=== PATIENT | male | born 1985 | race Two or more races ===

== ENCOUNTER 2024-08-07 13:30 | Inpatient (IN) | payer OTHER ==
[2024-08-07 17:36] LABS: VENOUS BASE EXCESS -6.9 mmol/L (-2-2); VENOUS O2 SATURATION 96.9 % (70-80); VENOUS PH 7.319 (7.310-7.410)
[2024-08-07 17:37] LABS: BASO % 0.3 % (0-2.0); EOS % 2.3 % (0-4.5); HEMATOCRIT 24.9 % (35.4-49); HEMOGLOBIN 8.1 GM/dL (11.7-16.9); MCH 27.5 pg (25.7-33.7); MCHC 32.5 g/dl (32.0-35.9); MEAN CELL VOLUME 84.5 fl (80-96); MEAN PLT VOLUME 7.9 fl (7.5-11.1); MONO % 7.7 % (3.8-10.2); NEUT % 80.7 % (42.8-82.8); PLATELET COUNT 186 10^3/uL (134-434); RBC 2.94 M/mm3 (4.00-5.60); RDW 16.3 % (11.9-15.9); WHITE BLOOD COUNT 6.9 K/mm3 (4.0-10.0)
[2024-08-07 17:48] LABS: INR 1.29 (0.83-1.09); PROTHROMBIN TIME (PATIENT) 14.1 SEC (9.7-13.0)
[2024-08-07 18:02] LABS: CHLORIDE 108 mmol/L (98-107); POTASSIUM 4.3 mmol/L (3.5-5.1); SODIUM 139 mmol/L (136-145)
[2024-08-07 18:04] LABS: BLOOD UREA NITROGEN 67.3 mg/dL (7-18)
[2024-08-07 18:05] LABS: ANION GAP 9 mmol/L (4-13); CO2 22 mmol/L (21-32); GLUCOSE,RANDOM 147 mg/dL (74-106); MAGNESIUM 1.1 mg/dL (1.8-2.4)
[2024-08-07 18:08] LABS: CREATININE 6.2 mg/dL (0.55-1.3); PHOSPHOROUS 5.7 mg/dL (2.5-4.9); SGOT/AST 24 U/L (15-37); SGPT/ALT 40 U/L (13-61)
[2024-08-07 18:09] LABS: BILIRUBIN,TOTAL 0.4 mg/dL (0.2-1)
[2024-08-07 18:10] LABS: TOT PROT 6.4 g/dl (6.4-8.2)
[2024-08-07 18:11] LABS: ALK PHOS 133 U/L (45-117)
[2024-08-07 18:13] LABS: N-TERMINAL BNP 1743.7 pg/ml (5-125)
[2024-08-07] MEDS: FUROSEMIDE 40 MG/4 ML INJECTABLE VIAL IVPUSH ONE ×2 (18:26→18:54)
[2024-08-07] MEDS ORDERED: FUROSEMIDE 40 MG/4 ML INJECTABLE VIAL ONE (18:28)
[2024-08-07] MEDS ORDERED: MAGNESIUM 1GM/D5W - 1 GM/100 ML IVPB IVPB ONE (18:28)
[2024-08-07] MEDS: MAGNESIUM 1GM/D5W - 1 GM/100 ML IVPB IVPB ONE (18:54)
[2024-08-07] MEDS ORDERED: CALCIUM CHLORIDE 1 GM/10 ML *DISP.SYRIN ONE (18:55)
[2024-08-07] MEDS ORDERED: ACETAMINOPHEN INJECTION 100 ML ONE (18:55)
[2024-08-07] MEDS: CALCIUM GLUCONATE 10% - 1,000 MG/10 ML VIAL IVPUSH ONE (19:02)
[2024-08-07] MEDS ORDERED: DOCUSATE SODIUM 100 MG CAPSULE (FP) PO PRN (20:37)
[2024-08-07] MEDS ORDERED: ACETAMINOPHEN 325 MG TABLET (FP) PO PRN (20:37)
[2024-08-07] MEDS: ACETAMINOPHEN 1000 MG/100 ML BAG IVPB ONE (21:58)
[2024-08-07] MEDS: INSULIN ASPART SLIDING SCALE (NOVOLOG) 1 VIAL SQ SCH (22:09)
[2024-08-08] MEDS ORDERED: MORPHINE SULFATE 2 MG/ML SYRINGE ONE (00:21)
[2024-08-08] MEDS: morphine CARPU-JECT 4 MG/1 ML DISP.SYRIN IVPUSH ONE (00:30)
[2024-08-08] MEDS: MORPHINE SULFATE 2 MG/ML SYRINGE IVPUSH ONE (00:40)
[2024-08-08 01:50] VITALS: BMI 43.1
[2024-08-08] MEDS ORDERED: FLUTICASONE PROP 0.05% 16 GM NASAL SPRAY NS PRN ×2 (03:27→11:37)
[2024-08-08] MEDS ORDERED: SODIUM CHLORIDE NASAL SPRAY 44 ML BOTTLE NS PRN ×2 (03:27→11:37)
[2024-08-08] MEDS ORDERED: LORATADINE 10 MG TABLET PO PRN ×2 (03:27→11:37)
[2024-08-08] MEDS ORDERED: ALBUTEROL SO4 HFA INHALER IH PRN ×2 (03:30→11:37)
[2024-08-08] MEDS: CARVEDILOL 6.25 MG TABLET (FP) PO ONE (03:49)
[2024-08-08] MEDS: morphine SULFATE 4 MG/ML VIAL IVPUSH ONE (03:49)
[2024-08-08] MEDS: ACETAMINOPHEN 500 MG TABLET (FP) PO ONE (04:41)
[2024-08-08] MEDS: SODIUM BICARBONATE 650 MG TABLET PO SCH ×2 (06:50→18:39)
[2024-08-08] MEDS: EMPAGLIFLOZIN (JARDIANCE) 10 MG TABLET PO SCH (06:50)
[2024-08-08 08:19] LABS: BASO % 0.4 % (0-2.0); EOS % 2.7 % (0-4.5); HEMATOCRIT 24.1 % (35.4-49); HEMOGLOBIN 7.7 GM/dL (11.7-16.9); LYMPH % 12.7 % (8-40); MCH 27.3 pg (25.7-33.7); MCHC 32.1 g/dl (32.0-35.9); MONO % 8.8 % (3.8-10.2); NEUT % 75.4 % (42.8-82.8); PLATELET COUNT 167 10^3/uL (134-434); RBC 2.83 M/mm3 (4.00-5.60); RDW 16.2 % (11.9-15.9); WHITE BLOOD COUNT 6.3 K/mm3 (4.0-10.0)
[2024-08-08 08:47] LABS: CHLORIDE 108 mmol/L (98-107); POTASSIUM 4.4 mmol/L (3.5-5.1); SODIUM 138 mmol/L (136-145)
[2024-08-08 09:25] LABS: BLOOD UREA NITROGEN 67.4 mg/dL (7-18)
[2024-08-08 09:26] LABS: ANION GAP 10 mmol/L (4-13); CALCIUM 6.2 mg/dL (8.5-10.1); CO2 21 mmol/L (21-32); GLUCOSE,RANDOM 129 mg/dL (74-106); MAGNESIUM 1.4 mg/dL (1.8-2.4)
[2024-08-08 09:29] LABS: CREATININE 6.6 mg/dL (0.55-1.3)
[2024-08-08 09:30] LABS: PHOSPHOROUS 6.3 mg/dL (2.5-4.9)
[2024-08-08] MEDS ORDERED: LIDOCAINE HCL 1%, 10 MG/ML (20ML VIAL) ONE (10:16)
[2024-08-08] MEDS ORDERED: HEPARIN NA (PORCINE) 5,000 UNITS/ML 1ML VIAL ONE (10:17)
[2024-08-08] MEDS: hydrALAZINE HCL 25 MG TABLET (FP) PO SCH ×2 (10:17→21:33)
[2024-08-08] MEDS: PANTOPRAZOLE 40 MG TABLET PO SCH (10:18)
[2024-08-08] MEDS: BUDESONIDE/FORMETEROL FUMARATE 160/4.5 mcg INHALER IH SCH ×2 (10:18→21:36)
[2024-08-08] MEDS: CARVEDILOL 6.25 MG TABLET (FP) PO SCH ×2 (10:18→21:33)
[2024-08-08] MEDS: amLODIPine BESYLATE 10 MG TABLET (FP) PO SCH (10:18)
[2024-08-08] MEDS: LIDOCAINE HCL 1%, 10 MG/ML (20ML VIAL) NR ONE (10:43)
[2024-08-08] MEDS: HEPARIN NA (PORCINE) 1,000 UNITS/ML 10ML M-D VIAL SQ ONE (10:44)
[2024-08-08] MEDS ORDERED: PROPOFOL 20 ML ONE (10:46)
[2024-08-08] MEDS ORDERED: MIDAZOLAM HCL 2 MG/2 ML SINGLE DOSE VIAL ONE (10:53)
[2024-08-08] MEDS ORDERED: ceFAZolin SODIUM 1 GM VIAL ONE (11:01)
[2024-08-08] MEDS ORDERED: SODIUM CHLORIDE 0.9% P/F 10 ML VIAL IJ ONE (11:01)
[2024-08-08] MEDS: ceFAZolin SODIUM 1 GM VIAL IVPB ONE (11:05)
[2024-08-08] MEDS ORDERED: ONDANSETRON 4 MG/2 ML VIAL IVPUSH PRN (11:29)
[2024-08-08] MEDS ORDERED: DOCUSATE SODIUM 100 MG CAPSULE (FP) PO PRN (11:37)
[2024-08-08] MEDS: LACTATED RINGERS SOLUTION 1,000 ML IV SCH (12:31)
[2024-08-08] MEDS ORDERED: SODIUM CHLORIDE 250 ML IV PRN ×2 (14:41→19:09)
[2024-08-08] MEDS: INSULIN ASPART SLIDING SCALE (NOVOLOG) 1 VIAL SQ SCH (18:38)
[2024-08-08] MEDS ORDERED: INSULIN ASPART SLIDING SCALE (NOVOLOG) 1 VIAL SQ ONE (19:01)
[2024-08-08] MEDS: CALCIUM ACETATE 667 MG CAPSULE (FP) PO SCH (21:32)
[2024-08-08] MEDS: MAGNESIUM OXIDE 400 MG TABLET (FP) PO ONE (21:32)
[2024-08-08] MEDS: CALCIUM GLUCONATE 10% - 1,000 MG/10 ML VIAL IVPB ONE (21:32)
[2024-08-08] MEDS: ATORVASTATIN CA 40 MG TABLET (FP) PO SCH (21:33)
[2024-08-08] MEDS ORDERED: ZOLPIDEM TARTRATE 5 MG TABLET PO PRN (22:00)
[2024-08-08] MEDS ORDERED: ATORVASTATIN CA 40 MG TABLET (FP) PO SCH (22:00)
[2024-08-08] MEDS: ZOLPIDEM TARTRATE 5 MG TABLET PO PRN (23:03)
[2024-08-09] MEDS: EMPAGLIFLOZIN (JARDIANCE) 10 MG TABLET PO SCH (06:33)
[2024-08-09] MEDS: ACETAMINOPHEN 325 MG TABLET (FP) PO PRN (06:37)
[2024-08-09 08:05] LABS: BASO % 0.3 % (0-2.0); HEMATOCRIT 24.7 % (35.4-49); LYMPH % 7.7 % (8-40); MCH 27.5 pg (25.7-33.7); MCHC 32.2 g/dl (32.0-35.9); MEAN CELL VOLUME 85.3 fl (80-96); MEAN PLT VOLUME 7.9 fl (7.5-11.1); MONO % 7.2 % (3.8-10.2); NEUT % 82.8 % (42.8-82.8); PLATELET COUNT 186 10^3/uL (134-434); RDW 16.1 % (11.9-15.9); WHITE BLOOD COUNT 7.7 K/mm3 (4.0-10.0)
[2024-08-09 08:22] LABS: CHLORIDE 106 mmol/L (98-107); POTASSIUM 4.6 mmol/L (3.5-5.1); SODIUM 139 mmol/L (136-145)
[2024-08-09 08:24] LABS: ALBUMIN 2.9 g/dl (3.4-5.0); ANION GAP 7 mmol/L (4-13); BLOOD UREA NITROGEN 55.8 mg/dL (7-18); CALCIUM 6.9 mg/dL (8.5-10.1); CO2 26 mmol/L (21-32); GLUCOSE,RANDOM 231 mg/dL (74-106)
[2024-08-09 08:27] LABS: CREATININE 5.8 mg/dL (0.55-1.3); SGOT/AST 17 U/L (15-37); SGPT/ALT 32 U/L (13-61)
[2024-08-09 08:29] LABS: BILIRUBIN,TOTAL 0.3 mg/dL (0.2-1); TOT PROT 6.2 g/dl (6.4-8.2)
[2024-08-09 08:30] LABS: ALK PHOS 133 U/L (45-117)
[2024-08-09] MEDS: PANTOPRAZOLE 40 MG TABLET PO SCH (11:26)
[2024-08-09] MEDS: amLODIPine BESYLATE 10 MG TABLET (FP) PO SCH (11:27)
[2024-08-09] MEDS: HEPARIN NA (PORCINE) 5,000 UNITS/ML 1ML VIAL IVPUSH ONE (12:30)
[2024-08-09 14:08] LABS: MAGNESIUM 1.4 mg/dL (1.8-2.4)
[2024-08-09 14:12] LABS: PHOSPHOROUS 5.6 mg/dL (2.5-4.9)
[2024-08-09 14:22] VITALS: TEMP 98.2
[2024-08-09] MEDS: EPOETIN ALFA-EPBX 10,000 UNIT/ML VIAL IVPUSH ONE (14:53)
[2024-08-09] MEDS: CALCIUM GLUCONATE 10% - 1,000 MG/10 ML VIAL IVPB ONE (16:56)
[2024-08-09] MEDS ORDERED: MAGNESIUM 2GM/50ML STERILE WATER IVPB IVPB ONE (17:00)
[2024-08-09] MEDS: MAGNESIUM 2GM/50ML STERILE WATER IVPB IVPB ONE (18:20)
[2024-08-09 19:37] VITALS: BP 151/77; PULSE 93; RESP 16
== END 2024-08-09 20:40 | disposition home or self-care (01) | DRG 194 ==
LOC: JER 13:30 → JERBED 20:31 → J7W 08-08 01:07
PROVIDERS: ADMIT Internal Medicine; ATTEND Internal Medicine
PROC: B548ZZA Ultrasonography of Superior Vena Cava, Guidance (ICD-10-PCS; 2024-08-08)
PROC: 5A1D70Z Performance of Urinary Filtration, Intermittent, Less than 6 Hours Per Day (ICD-10-PCS; 2024-08-08)
PROC: 02HV33Z Insertion of Infusion Device into Superior Vena Cava, Percutaneous Approach (ICD-10-PCS; principal; 2024-08-08 12:30)
DX: I13.2 Hypertensive heart and chronic kidney disease with heart failure and with stage 5 chronic kidney disease, or end stage renal disease (principal); N17.9 Acute kidney failure, unspecified; E83.42 Hypomagnesemia; E11.22 Type 2 diabetes mellitus with diabetic chronic kidney disease; N18.6 End stage renal disease; E11.51 Type 2 diabetes mellitus with diabetic peripheral angiopathy without gangrene; I25.2 Old myocardial infarction; I50.32 Chronic diastolic (congestive) heart failure; I25.10 Atherosclerotic heart disease of native coronary artery without angina pectoris; K21.9 Gastro-esophageal reflux disease without esophagitis; E78.5 Hyperlipidemia, unspecified
CPT/HCPCS: 0241U-QW; 36415; 71045-TC-FY; 76000-TC-FY; 80048; 80053; 82550; 82553; 82803; 82962; 83735; 83880; 84100; 84443; 84484; 85025; 85610; 85730; 86704; 86803; 86850; 86900; 86901; 87340; 87517; 93005; 93010; 93970-TC; 94760; 99285-25; C1750; J0131; J1644; Q5106

== ENCOUNTER 2024-08-13 14:32 | Observation (INO) | payer OTHER ==
[2024-08-13 14:40] VITALS: BMI 40.7
[2024-08-13] MEDS ORDERED: FUROSEMIDE 40 MG/4 ML INJECTABLE VIAL ONE (15:57)
[2024-08-13] MEDS: FUROSEMIDE 40 MG/4 ML INJECTABLE VIAL IVPUSH ONE (16:01)
[2024-08-13 16:15] LABS: BASO % 0.3 % (0-2.0); EOS % 1.4 % (0-4.5); HEMATOCRIT 25.9 % (35.4-49); HEMOGLOBIN 8.1 GM/dL (11.7-16.9); LYMPH % 6.4 % (8-40); MCH 26.6 pg (25.7-33.7); MCHC 31.4 g/dl (32.0-35.9); MEAN CELL VOLUME 84.7 fl (80-96); MEAN PLT VOLUME 7.9 fl (7.5-11.1); MONO % 9.9 % (3.8-10.2); PLATELET COUNT 210 10^3/uL (134-434); RBC 3.06 M/mm3 (4.00-5.60); RDW 16.4 % (11.9-15.9); WHITE BLOOD COUNT 7.9 K/mm3 (4.0-10.0)
[2024-08-13 16:30] LABS: INR 1.32 (0.83-1.09); PROTHROMBIN TIME (PATIENT) 14.4 SEC (9.7-13.0)
[2024-08-13 16:46] LABS: POTASSIUM 4.4 mmol/L (3.5-5.1)
[2024-08-13] MEDS ORDERED: ACETAMINOPHEN 325 MG TABLET (FP) ONE (16:46)
[2024-08-13 16:47] LABS: CALCIUM 7.7 mg/dL (8.5-10.1)
[2024-08-13 16:48] LABS: ALBUMIN 2.9 g/dl (3.4-5.0); BLOOD UREA NITROGEN 36.1 mg/dL (7-18); MAGNESIUM 1.7 mg/dL (1.8-2.4)
[2024-08-13] MEDS: ACETAMINOPHEN 325 MG TABLET (FP) PO ONE (16:50)
[2024-08-13 16:51] LABS: CREATININE 4.5 mg/dL (0.55-1.3)
[2024-08-13 16:52] LABS: BILIRUBIN,TOTAL 0.6 mg/dL (0.2-1); TOT PROT 6.5 g/dl (6.4-8.2)
[2024-08-13] MEDS ORDERED: SODIUM CHLORIDE 250 ML IV PRN (17:14)
[2024-08-13] MEDS: HEPARIN NA (PORCINE) 5,000 UNITS/ML 1ML VIAL IVPUSH ONE (17:15)
[2024-08-14] MEDS: hydrOXYzine PAMOATE 25 MG CAPSULE (FP) PO ONE (04:52)
[2024-08-14] MEDS ORDERED: ALBUTEROL SO4 HFA INHALER IH PRN (09:05)
[2024-08-14] MEDS ORDERED: INSULIN ASPART SLIDING SCALE (NOVOLOG) 1 VIAL SQ ONE (09:31)
[2024-08-14] MEDS: INSULIN ASPART SLIDING SCALE (NOVOLOG) 1 VIAL SQ SCH (09:38)
[2024-08-14 10:00] LABS: BASO % 0.2 % (0-2.0); EOS % 1.6 % (0-4.5); HEMATOCRIT 26.5 % (35.4-49); HEMOGLOBIN 8.4 GM/dL (11.7-16.9); LYMPH % 10.4 % (8-40); MCH 26.9 pg (25.7-33.7); MCHC 31.9 g/dl (32.0-35.9); MEAN CELL VOLUME 84.3 fl (80-96); MONO % 9.7 % (3.8-10.2); NEUT % 78.1 % (42.8-82.8); PLATELET COUNT 231 10^3/uL (134-434); RBC 3.14 M/mm3 (4.00-5.60); RDW 16.4 % (11.9-15.9); WHITE BLOOD COUNT 7.4 K/mm3 (4.0-10.0)
[2024-08-14] MEDS: hydrALAZINE HCL 25 MG TABLET (FP) PO SCH (10:03)
[2024-08-14] MEDS: CARVEDILOL 6.25 MG TABLET (FP) PO SCH (10:04)
[2024-08-14 10:05] LABS: CALCIUM 7.5 mg/dL (8.5-10.1)
[2024-08-14 10:06] LABS: BLOOD UREA NITROGEN 29.7 mg/dL (7-18); MAGNESIUM 1.6 mg/dL (1.8-2.4)
[2024-08-14 10:09] LABS: PHOSPHOROUS 4.1 mg/dL (2.5-4.9)
[2024-08-14 10:10] LABS: BILIRUBIN,TOTAL 0.6 mg/dL (0.2-1); TOT PROT 6.6 g/dl (6.4-8.2)
[2024-08-14] MEDS ORDERED: KETOROLAC TROMETHAMINE 15 MG/ML VIAL IVPUSH PRN (11:02)
[2024-08-14] MEDS: traMADol HCL 50 MG TABLET PO PRN (12:06)
[2024-08-14] MEDS: EMPAGLIFLOZIN (JARDIANCE) 10 MG TABLET PO SCH (12:13)
[2024-08-14] MEDS: BUDESONIDE/FORMETEROL FUMARATE 160/4.5 mcg INHALER IH SCH (12:13)
[2024-08-14] MEDS: SODIUM BICARBONATE 650 MG TABLET PO SCH (12:23)
[2024-08-14] MEDS: FUROSEMIDE 40 MG TABLET (FP) PO SCH (12:23)
[2024-08-14] MEDS: amLODIPine BESYLATE 10 MG TABLET (FP) PO SCH (14:04)
[2024-08-14] MEDS: CALCIUM 500MG/VIT-D 200 UNITS COMBO TABLET (FP) PO SCH (14:10)
[2024-08-14] MEDS: HEPARIN NA (PORCINE) 5,000 UNITS/ML 1ML VIAL SQ SCH (14:12)
[2024-08-14] MEDS: MAGNESIUM 2GM/50ML STERILE WATER IVPB IVPB ONE (15:05)
[2024-08-14] MEDS: ALPRAZolam 1 MG TABLET PO ONE (16:16)
[2024-08-14] MEDS: HEPARIN NA (PORCINE) 5,000 UNITS/ML 1ML VIAL IVPUSH ONE (16:35)
[2024-08-14] MEDS: EPOETIN ALFA-EPBX 10,000 UNIT/ML VIAL SQ ONE (18:46)
[2024-08-14] MEDS: INSULIN (LEVEMIR) 100 UNITS/ML UNITS SQ SCH (21:02)
[2024-08-14] MEDS: ATORVASTATIN CA 40 MG TABLET (FP) PO SCH (21:07)
[2024-08-14 21:15] LABS: OPIATES, URI NEGATIVE (NEGATIVE); PHENCYCLIDINE,URINE NEGATIVE (NEGATIVE); URINE BARBITURATES NEGATIVE (NEGATIVE); URINE BENZODIAZEPINES NEGATIVE (NEGATIVE)
[2024-08-14 21:16] LABS: METHADONE, UR NEGATIVE (NEGATIVE)
[2024-08-14 21:36] LABS: COCAINE, UR NEGATIVE (NEGATIVE); URINE AMPHETAMINES NEGATIVE (NEGATIVE)
[2024-08-14] MEDS ORDERED: ZOLPIDEM TARTRATE 5 MG TABLET PO SCH (22:00)
[2024-08-14] MEDS ORDERED: ZOLPIDEM TARTRATE 5 MG TABLET PO PRN (22:00)
[2024-08-14] MEDS ORDERED: SODIUM CHLORIDE 250 ML IV PRN (23:33)
[2024-08-15 09:44] LABS: HEMOGLOBIN 8.7 GM/dL (11.7-16.9); MCH 27.4 pg (25.7-33.7); MCHC 32.3 g/dl (32.0-35.9); MEAN CELL VOLUME 84.8 fl (80-96); MEAN PLT VOLUME 7.6 fl (7.5-11.1); PLATELET COUNT 208 10^3/uL (134-434); RBC 3.19 M/mm3 (4.00-5.60); WHITE BLOOD COUNT 7.4 K/mm3 (4.0-10.0)
[2024-08-15] MEDS: SACUBITRIL/VALSARTAN 24 MG-26 MG TABLET PO SCH (09:49)
[2024-08-15] MEDS: ASPIRIN 81 MG CHEWABLE TABLETS PO SCH (09:50)
[2024-08-15] MEDS: FUROSEMIDE 40 MG TABLET (FP) PO SCH (09:50)
[2024-08-15] MEDS ORDERED: FUROSEMIDE 40 MG TABLET (FP) PO SCH (10:00)
[2024-08-15 10:29] LABS: POTASSIUM 4.6 mmol/L (3.5-5.1)
[2024-08-15 10:31] LABS: BLOOD UREA NITROGEN 35.3 mg/dL (7-18); CALCIUM 7.7 mg/dL (8.5-10.1); MAGNESIUM 1.6 mg/dL (1.8-2.4)
[2024-08-15 10:34] LABS: CREATININE 3.8 mg/dL (0.55-1.3)
[2024-08-15 10:35] LABS: PHOSPHOROUS 3.6 mg/dL (2.5-4.9)
[2024-08-15] MEDS: MAGNESIUM 2GM/50ML STERILE WATER IVPB IVPB ONE (14:40)
[2024-08-15] MEDS ORDERED: INSULIN (NOVOLOG) ASPART 100 UNITS/ML 10ML VIAL SQ SCH (16:30)
[2024-08-15] MEDS: INSULIN (NOVOLOG) ASPART 100 UNITS/ML 10ML VIAL SQ SCH (18:00)
[2024-08-15] MEDS: ALPRAZolam 1 MG TABLET PO PRN (20:14)
[2024-08-15] MEDS: INSULIN (LEVEMIR) 100 UNITS/ML UNITS SQ SCH (21:20)
[2024-08-15] MEDS: ZOLPIDEM TARTRATE 5 MG TABLET PO ONE (22:48)
[2024-08-15] MEDS: ACETAMINOPHEN 325 MG TABLET (FP) PO PRN (22:48)
[2024-08-16] MEDS ORDERED: SODIUM CHLORIDE 250 ML IV PRN (09:33)
[2024-08-16 09:41] LABS: HEMATOCRIT 27.4 % (35.4-49); HEMOGLOBIN 8.6 GM/dL (11.7-16.9); MCH 26.4 pg (25.7-33.7); MCHC 31.3 g/dl (32.0-35.9); MEAN CELL VOLUME 84.4 fl (80-96); MEAN PLT VOLUME 7.4 fl (7.5-11.1); PLATELET COUNT 219 10^3/uL (134-434); RBC 3.24 M/mm3 (4.00-5.60); RDW 15.9 % (11.9-15.9); WHITE BLOOD COUNT 8.6 K/mm3 (4.0-10.0)
[2024-08-16 10:01] LABS: POTASSIUM 4.3 mmol/L (3.5-5.1)
[2024-08-16 10:05] LABS: CALCIUM 7.7 mg/dL (8.5-10.1)
[2024-08-16 10:06] LABS: ALBUMIN 2.8 g/dl (3.4-5.0); BLOOD UREA NITROGEN 44.2 mg/dL (7-18)
[2024-08-16 10:09] LABS: CREATININE 4.4 mg/dL (0.55-1.3)
[2024-08-16 10:10] LABS: BILIRUBIN,TOTAL 0.4 mg/dL (0.2-1); TOT PROT 6.2 g/dl (6.4-8.2)
[2024-08-16] MEDS: EPOETIN ALFA-EPBX 10,000 UNIT/ML VIAL SQ ONE (10:18)
[2024-08-16] MEDS: HEPARIN NA (PORCINE) 5,000 UNITS/ML 1ML VIAL IVPUSH ONE (10:19)
[2024-08-16 13:13] VITALS: RESP 18
[2024-08-16 13:27] VITALS: BP 125/85; PULSE 86; TEMP 97.3
== END 2024-08-16 16:22 | disposition home or self-care (01) ==
LOC: JER 14:32 → UNDOADMOB 16:43 → JERBED 16:43 → J5S 20:30 → INTOOBSV 08-14 06:14 → OBSVTOIN 08-14 06:14 → J5S 08-14 10:59 → JERBED 08-14 10:59
PROVIDERS: ADMIT Internal Medicine
PROC: 3E033NZ Introduction of Analgesics, Hypnotics, Sedatives into Peripheral Vein, Percutaneous Approach (ICD-10-PCS; principal; 2024-08-14)
PROC: 3E023GC Introduction of Other Therapeutic Substance into Muscle, Percutaneous Approach (ICD-10-PCS; 2024-08-14)
PROC: 3E033GC Introduction of Other Therapeutic Substance into Peripheral Vein, Percutaneous Approach (ICD-10-PCS; 2024-08-14)
PROC: 3E013VG Introduction of Insulin into Subcutaneous Tissue, Percutaneous Approach (ICD-10-PCS; 2024-08-14)
PROC: 3E033NZ Introduction of Analgesics, Hypnotics, Sedatives into Peripheral Vein, Percutaneous Approach (ICD-10-PCS; 2024-08-14)
DX: E87.70 Fluid overload, unspecified (principal); E11.22 Type 2 diabetes mellitus with diabetic chronic kidney disease; I12.0 Hypertensive chronic kidney disease with stage 5 chronic kidney disease or end stage renal disease; I50.42 Chronic combined systolic (congestive) and diastolic (congestive) heart failure; J81.1 Chronic pulmonary edema; N18.6 End stage renal disease; Z99.2 Dependence on renal dialysis; D64.9 Anemia, unspecified; E66.9 Obesity, unspecified; L98.499 Non-pressure chronic ulcer of skin of other sites with unspecified severity
CPT/HCPCS: 0241U-QW; 36415; 71046-TC-FY; 80048; 80053; 80307; 82962; 83735; 84100; 84484; 85025; 85027; 85610; 86850; 86900; 86901; 93005; 93010; 93306-TC; 96372; 96374; 96375; 96376; 99285-25; G0378; J1644; Q5106

== ENCOUNTER 2024-08-28 06:17 | Day surgery (SDC) | payer OTHER ==
[2024-08-23 15:53] VITALS: BMI 38.8
[2024-08-28] MEDS ORDERED: LIDOCAINE HCL 1%, 10 MG/ML (20ML VIAL) ONE (07:20)
[2024-08-28] MEDS ORDERED: HEPARIN NA (PORCINE) 5,000 UNITS/ML 1ML VIAL ONE (07:20)
[2024-08-28] MEDS ORDERED: PAPAVERINE HCL 30 MG/1 ML 10 ML VIAL NR ONE (07:20)
[2024-08-28] MEDS ORDERED: PROPOFOL 20 ML ONE ×3 (07:36→09:17)
[2024-08-28] MEDS ORDERED: MIDAZOLAM HCL 2 MG/2 ML SINGLE DOSE VIAL ONE ×2 (07:36→08:17)
[2024-08-28] MEDS: INSULIN REGULAR HUMAN 100 UNITS/ML *VIAL SQ ONE (07:47)
[2024-08-28] MEDS ORDERED: ceFAZolin SODIUM 1 GM VIAL ONE (08:14)
[2024-08-28] MEDS ORDERED: ONDANSETRON 4 MG/2 ML VIAL ONE (08:14)
[2024-08-28] MEDS: ceFAZolin SODIUM 1 GM VIAL IVPB ONE (08:15)
[2024-08-28] MEDS ORDERED: KETAMINE HCL 200 MG/20 ML VIAL ONE (08:18)
[2024-08-28] MEDS: LIDOCAINE HCL 1%, 10 MG/ML (50 mL VIAL) INF ONE (08:22)
[2024-08-28] MEDS: LIDOCAINE HCL 1%, 10 MG/ML (20ML VIAL) INF ONE ×3 (08:22)
[2024-08-28] MEDS ORDERED: METOPROLOL TARTRATE 5 MG/5 ML VIAL ONE (08:32)
[2024-08-28] MEDS ORDERED: ONDANSETRON 4 MG/2 ML VIAL IVPUSH PRN (09:47)
[2024-08-28] MEDS ORDERED: oxyCODONE HCL 5 MG TABLET PO PRN (09:47)
[2024-08-28] MEDS ORDERED: LACTATED RINGERS SOLUTION 1,000 ML IV SCH (10:00)
[2024-08-28 13:11] VITALS: BP 125/79; PULSE 90; RESP 16; TEMP 97.3
== END 2024-08-28 13:05 | disposition home or self-care (01) ==
LOC: JASU-SURG 06:17 → MERGE 08:00 → JASU-SURG 13:05
PROVIDERS: ATTEND Surgery
DX: I12.0 Hypertensive chronic kidney disease with stage 5 chronic kidney disease or end stage renal disease (principal); E11.22 Type 2 diabetes mellitus with diabetic chronic kidney disease; N18.6 End stage renal disease; N17.9 Acute kidney failure, unspecified; Z99.2 Dependence on renal dialysis; Z79.4 Long term (current) use of insulin; Z79.85 Long-term (current) use of injectable non-insulin antidiabetic drugs
CPT/HCPCS: 82962; 94760; J1644

== ENCOUNTER 2024-09-18 06:42 | Day surgery (SDC) | payer OTHER ==
[2024-09-13 17:19] VITALS: BMI 38.8
[2024-09-18] MEDS ORDERED: LIDOCAINE HCL 1%, 10 MG/ML (20ML VIAL) ONE (11:21)
[2024-09-18] MEDS ORDERED: HEPARIN NA (PORCINE) 5,000 UNITS/ML 1ML VIAL ONE (11:21)
[2024-09-18] MEDS ORDERED: PAPAVERINE HCL 30 MG/1 ML 10 ML VIAL NR ONE (11:21)
[2024-09-18] MEDS ORDERED: ROPIVACAINE HCL 0.5% 30ML VIAL ONE (11:33)
[2024-09-18] MEDS ORDERED: PROPOFOL 20 ML ONE ×2 (11:38→12:57)
[2024-09-18] MEDS ORDERED: MIDAZOLAM HCL 2 MG/2 ML SINGLE DOSE VIAL ONE ×2 (11:38→12:26)
[2024-09-18] MEDS ORDERED: ceFAZolin SODIUM 1 GM VIAL ONE (12:27)
[2024-09-18 12:32] LABS: POTASSIUM 4.3 mmol/L (3.5-5.1)
[2024-09-18 12:33] LABS: BLOOD UREA NITROGEN 57.7 mg/dL (7-18)
[2024-09-18 12:37] LABS: CREATININE 5.9 mg/dL (0.55-1.3)
[2024-09-18] MEDS: ceFAZolin SODIUM 1 GM VIAL IVPB ONE (12:38)
[2024-09-18] MEDS: LIDOCAINE HCL 1%, 10 MG/ML (20ML VIAL) INF ONE ×2 (12:44)
[2024-09-18] MEDS ORDERED: POVIDONE-IODINE OINTMENT 10% - 28.4 GM TUBE ONE (12:57)
[2024-09-18] MEDS ORDERED: EPOETIN ALFA-EPBX 4,000 UNIT/ML VIAL SQ ONE (13:39)
[2024-09-18] MEDS ORDERED: SODIUM CHLORIDE 250 ML IV PRN (13:39)
[2024-09-18] MEDS: POVIDONE-IODINE OINTMENT 10% - 28.4 GM TUBE TP ONE (13:45)
[2024-09-18] MEDS ORDERED: ONDANSETRON 4 MG/2 ML VIAL IVPUSH PRN (14:18)
[2024-09-18] MEDS ORDERED: ALBUTEROL SO4 HFA INHALER IH PRN (14:22)
[2024-09-18 15:55] LABS: HCV DIAGNOSTIC IN-HOUSE W/RFLX NON-REACTIVE (NONREACTIVE)
[2024-09-18 16:28] VITALS: RESP 18
[2024-09-18] MEDS: INSULIN ASPART SLIDING SCALE (NOVOLOG) 1 VIAL SQ SCH (17:34)
[2024-09-18] MEDS: oxyCODONE HCL 5 MG TABLET PO PRN (20:29)
[2024-09-18] MEDS: hydrALAZINE HCL 25 MG TABLET (FP) PO SCH (21:02)
[2024-09-18] MEDS: SACUBITRIL/VALSARTAN 24 MG-26 MG TABLET PO SCH (21:02)
[2024-09-18] MEDS: ATORVASTATIN CA 40 MG TABLET (FP) PO SCH (21:03)
[2024-09-18] MEDS: CARVEDILOL 6.25 MG TABLET (FP) PO SCH (21:03)
[2024-09-18] MEDS: BUDESONIDE/FORMETEROL FUMARATE 160/4.5 mcg INHALER IH SCH (21:47)
[2024-09-19] MEDS ORDERED: diphenhydrAMINE HCL 25 MG CAPSULE (FP) PO ONE (00:54)
[2024-09-19 02:19] VITALS: BP 146/96; PULSE 76; TEMP 97.5
[2024-09-19] MEDS: diphenhydrAMINE HCL 25 MG CAPSULE (FP) PO ONE (06:09)
[2024-09-19] MEDS: EMPAGLIFLOZIN (JARDIANCE) 10 MG TABLET PO SCH (06:09)
[2024-09-19] MEDS: CALCIUM 500MG/VIT-D 200 UNITS COMBO TABLET (FP) PO SCH (09:20)
[2024-09-19] MEDS: amLODIPine BESYLATE 10 MG TABLET (FP) PO SCH (09:20)
[2024-09-19] MEDS: ASPIRIN 81 MG CHEWABLE TABLETS PO SCH (09:20)
== END 2024-09-19 02:10 | disposition home or self-care (01) ==
LOC: SUATTDRO 06:42 → JASUSAT 06:42 → JASU-SURG 06:42 → J6S 15:24 → JASUSAT 09-19 02:10
PROVIDERS: ATTEND Internal Medicine
PROC: 031B0ZF Bypass Right Radial Artery to Lower Arm Vein, Open Approach (ICD-10-PCS; principal; 2024-09-18 12:00)
DX: I12.0 Hypertensive chronic kidney disease with stage 5 chronic kidney disease or end stage renal disease (principal); E11.22 Type 2 diabetes mellitus with diabetic chronic kidney disease; N18.6 End stage renal disease
CPT/HCPCS: 36415; 80048; 82962; 86803; 87340; 94760; J1644

== ENCOUNTER → 2024-11-05 | Day surgery (SDC) | payer OTHER ==
[~2024-11-05] MED LIST: FENTANYL CITRATE/PF 50 MCG/ML VIAL ONE; HEPARIN NA (PORCINE) 5,000 UNITS/ML 1ML VIAL ONE; MIDAZOLAM HCL 2 MG/2 ML SINGLE DOSE VIAL ONE
[2024-11-05 15:17] LABS: ABSOLUTE IMMATURE GRANULOCYTES 0.12 x10^3/uL (0.0-0.031); BASOPHILS # 0.05 x10^3/uL (0.01-0.08); EOSINOPHIL % 2.3 % (0.8-7.0); HEMATOCRIT 35.3 % (40.1-51.0); HEMOGLOBIN 11.3 g/dL (13.7-17.5); MEAN CELL VOLUME 84.7 fl (79.0-92.2); MEAN PLT VOLUME 10.1 fl (9.4-12.4); MONOCYTE # 0.56 x10^3/uL (0.30-0.82); MONOCYTE % 6.4 % (5.3-12.2); PLATELET COUNT 179 x10^3/uL (163-337); RDW 14.7 % (12.0-15.6)
[2024-11-05 15:25] LABS: INR 1.05 (0.83-1.09); PROTHROMBIN TIME (PATIENT) 11.5 SEC (9.7-13.0)
[2024-11-05 15:49] LABS: CHLORIDE 103 mmol/L (98-107); POTASSIUM 4.1 mmol/L (3.5-5.1); SODIUM 137 mmol/L (136-145)
[2024-11-05 15:51] LABS: ALBUMIN 2.9 g/dl (3.4-5.0); ANION GAP 12 mmol/L (4-13); CALCIUM 8.8 mg/dL (8.5-10.1); CO2 22 mmol/L (21-32)
[2024-11-05 15:52] LABS: BLOOD UREA NITROGEN 39.3 mg/dL (7-18); GLUCOSE,RANDOM 243 mg/dL (74-106)
[2024-11-05 15:54] LABS: SGPT/ALT 10 U/L (13-61)
[2024-11-05 15:56] LABS: SGOT/AST 13 U/L (15-37)
[2024-11-05] MEDS: FENTANYL CITRATE/PF 50 MCG/ML VIAL IVPUSH SCH (15:56)
[2024-11-05] MEDS: MIDAZOLAM HCL 2 MG/2 ML SINGLE DOSE VIAL IVPUSH ONE (15:56)
[2024-11-05 15:57] LABS: ALK PHOS 162 U/L (45-117); BILIRUBIN,TOTAL 0.2 mg/dL (0.2-1); TOT PROT 6.9 g/dl (6.4-8.2)
[2024-11-05 16:29] VITALS: PULSE 93
[2024-11-05 16:37] VITALS: BP 140/82; RESP 16
== END | disposition home or self-care (01) ==
LOC: JRADIR 14:07
PROVIDERS: ATTEND Surgery
PROC: 057D3ZZ Dilation of Right Cephalic Vein, Percutaneous Approach (ICD-10-PCS; principal; 2024-11-05)
DX: T82.858A Stenosis of other vascular prosthetic devices, implants and grafts, initial encounter (principal); I12.0 Hypertensive chronic kidney disease with stage 5 chronic kidney disease or end stage renal disease; E11.22 Type 2 diabetes mellitus with diabetic chronic kidney disease; N18.6 End stage renal disease; Z99.2 Dependence on renal dialysis; Z79.4 Long term (current) use of insulin
CPT/HCPCS: 36415; 37248; 80053; 85025; 85610; C1725; C1769; C1894

== ENCOUNTER 2024-11-21 06:33 | Day surgery (SDC) | payer OTHER ==
[2024-11-18 12:42] VITALS: BMI 38.3
[2024-11-21] MEDS ORDERED: INSULIN REGULAR HUMAN 100 UNITS/ML *VIAL ONE ×2 (11:54→13:39)
[2024-11-21] MEDS: INSULIN REGULAR HUMAN 100 UNITS/ML *VIAL* (FOR IVP) SQ ONE (11:57)
[2024-11-21] MEDS: INSULIN REGULAR HUMAN 100 UNITS/ML *VIAL SQ ONE (13:46)
[2024-11-21] MEDS ORDERED: ONDANSETRON 4 MG/2 ML VIAL IVPUSH PRN (14:11)
[2024-11-21] MEDS ORDERED: LACTATED RINGERS SOLUTION 1,000 ML IV SCH (14:15)
[2024-11-21] MEDS ORDERED: INSULIN REGULAR HUMAN 100 UNITS/ML *VIAL SQ ONE (14:30)
[2024-11-21] MEDS ORDERED: PROPOFOL 20 ML ONE (16:38)
[2024-11-21] MEDS ORDERED: MIDAZOLAM HCL 2 MG/2 ML SINGLE DOSE VIAL ONE ×2 (16:39→17:05)
[2024-11-21] MEDS ORDERED: KETAMINE HCL 200 MG/20 ML VIAL ONE (17:05)
[2024-11-21] MEDS ORDERED: ESMOLOL HCL 100,000 MCG/10 ML VIAL ONE (17:15)
[2024-11-21] MEDS: LIDOCAINE HCL 1%, 10 MG/ML (50 mL VIAL) INF ONE (17:24)
[2024-11-21 19:01] VITALS: RESP 20; TEMP 97.2
[2024-11-21 19:04] VITALS: BP 127/67; PULSE 80
== END 2024-11-21 19:03 | disposition home or self-care (01) ==
LOC: JASU-SURG 06:33
PROVIDERS: ATTEND Surgery
PROC: B50WYZZ Plain Radiography of Dialysis Shunt/Fistula using Other Contrast (ICD-10-PCS; principal; 2024-11-21 12:30)
DX: T82.590A Other mechanical complication of surgically created arteriovenous fistula, initial encounter (principal); Y71.3 Surgical instruments, materials and cardiovascular devices (including sutures) associated with adverse incidents; Y83.8 Other surgical procedures as the cause of abnormal reaction of the patient, or of later complication, without mention of misadventure at the time of the procedure; Y92.9 Unspecified place or not applicable; N18.6 End stage renal disease
CPT/HCPCS: 36415; 76000-TC-FY; 82010; 82962; 84132; 94760

== ENCOUNTER 2025-02-18 13:53 | Inpatient (IN) | payer OTHER ==
[2025-02-18 14:04] VITALS: BMI 38.3
[2025-02-18 15:08] LABS: ABSOLUTE IMMATURE GRANULOCYTES 0.09 x10^3/uL (0.0-0.031); BASOPHILS # 0.04 x10^3/uL (0.01-0.08); EOSINOPHIL % 1.7 % (0.8-7.0); EOSINOPHILS # 0.16 x10^3/uL (0.04-0.54); MCHC 31.7 g/dl (32.3-36.5); MEAN CELL VOLUME 90.4 fl (79.0-92.2); MEAN PLT VOLUME 10.1 fl (9.4-12.4); MONOCYTE # 0.72 x10^3/uL (0.30-0.82); MONOCYTE % 7.5 % (5.3-12.2); RDW 16.7 % (12.0-15.6)
[2025-02-18 15:17] LABS: INR 1.06 (0.83-1.09); PROTHROMBIN TIME (PATIENT) 11.6 SEC (9.7-13.0)
[2025-02-18 15:20] LABS: ACTIVATED PTT 28.0 SECONDS (25.2-36.5)
[2025-02-18 15:44] LABS: ERYTHROCYTE SEDIMENTATION RATE 27 mm/hr (0-10)
[2025-02-18 15:50] LABS: GLUCOSE,RANDOM 187.0 mg/dL (74-106)
[2025-02-18 15:51] LABS: TOT PROT 7.8 g/dl (6.4-8.2)
[2025-02-18 15:54] LABS: ALK PHOS 113.0 U/L (40-150); CO2 27.0 mmol/L (21-32)
[2025-02-18 15:56] LABS: CREATININE 7.4 mg/dL (0.55-1.3); SGOT/AST 18.0 U/L (5-34); SGPT/ALT 16.0 U/L (0-55)
[2025-02-18] MEDS ORDERED: CEFEPIME HCL/D5W 1 GM/50 ML BAG IVPB ONE (16:09)
[2025-02-18] MEDS: CEFEPIME HCL 1 GM VIAL (RESTRICTED TO ID) IVPB ONE (16:12)
[2025-02-18 16:18] LABS: HIV INTERPRETATION NEGATIVE (NEGATIVE)
[2025-02-18 16:19] LABS: HCV DIAGNOSTIC IN-HOUSE W/RFLX NON-REACTIVE (NONREACTIVE)
[2025-02-18] MEDS ORDERED: VANCOMYCIN 1 GM PREMIX (F) 1 GM/200 ML BAG ONE (16:31)
[2025-02-18] MEDS: VANCOMYCIN 1,000 MG in DEXTROSE 5%-WATER - 250 ML IVPB ONE (16:43)
[2025-02-18] MEDS ORDERED: SODIUM CHLORIDE 250 ML IV PRN (19:06)
[2025-02-18] MEDS ORDERED: CARVEDILOL 6.25 MG TABLET (FP) ONE (23:04)
[2025-02-18] MEDS ORDERED: HEPARIN NA (PORCINE) 5,000 UNITS/ML 1ML VIAL ONE (23:04)
[2025-02-18] MEDS ORDERED: ATORVASTATIN CA 40 MG TABLET (FP) ONE (23:04)
[2025-02-18] MEDS ORDERED: ZOLPIDEM TARTRATE 5 MG TABLET ONE (23:04)
[2025-02-18] MEDS: ATORVASTATIN CA 40 MG TABLET (FP) PO SCH (23:45)
[2025-02-18] MEDS: INSULIN ASPART SLIDING SCALE (NOVOLOG) 1 VIAL SQ SCH (23:45)
[2025-02-18] MEDS: HEPARIN NA (PORCINE) 5,000 UNITS/ML 1ML VIAL SQ SCH (23:45)
[2025-02-18] MEDS: CARVEDILOL 6.25 MG TABLET (FP) PO SCH (23:45)
[2025-02-18] MEDS: BUDESONIDE/FORMETEROL FUMARATE 160/4.5 mcg INHALER IH SCH (23:46)
[2025-02-18] MEDS: ZOLPIDEM TARTRATE 5 MG TABLET PO PRN (23:46)
[2025-02-19] MEDS: NICOTINE 14 MG/24 HOURS TOPICAL PATCH TD SCH (00:24)
[2025-02-19] MEDS: INSULIN GLARGINE (LANTUS) 100 UNITS/ML UNITS SQ SCH (06:31)
[2025-02-19 08:03] LABS: MCHC 31.3 g/dl (32.3-36.5); MEAN CELL VOLUME 89.7 fl (79.0-92.2); MEAN PLT VOLUME 10.4 fl (9.4-12.4); RDW 16.2 % (12.0-15.6)
[2025-02-19 09:54] LABS: GLUCOSE,RANDOM 418 mg/dL (74-106)
[2025-02-19 09:55] LABS: TOT PROT 6.3 g/dl (6.4-8.2)
[2025-02-19 09:56] LABS: CO2 18 mmol/L (21-32)
[2025-02-19 09:57] LABS: ALK PHOS 85 U/L (40-150)
[2025-02-19 10:00] LABS: CREATININE 7.92 mg/dL (0.55-1.3); SGOT/AST 14 U/L (5-34); SGPT/ALT 10 U/L (0-55)
[2025-02-19 10:20] LABS: HCV DIAGNOSTIC IN-HOUSE W/RFLX NON-REACTIVE (NONREACTIVE)
[2025-02-19 10:22] LABS: HEPATITIS B SURF AG NON-MATERN NON-REACTIVE (NONREACTIVE)
[2025-02-19] MEDS: amLODIPine BESYLATE 10 MG TABLET (FP) PO SCH (14:08)
[2025-02-19] MEDS: PANTOPRAZOLE 40 MG TABLET PO SCH (14:08)
[2025-02-19] MEDS: CEFEPIME 0.5 GM in DEXTROSE 5%-WATER - 50 ML IVPB SCH (14:08)
[2025-02-19] MEDS ORDERED: HEPARIN NA (PORCINE) 5,000 UNITS/ML 1ML VIAL IVPUSH ONE (19:06)
[2025-02-19] MEDS ORDERED: HEPARIN NA (PORCINE) 5,000 UNITS/ML 1ML VIAL IVPUSH SCH (19:15)
[2025-02-20] MEDS: PIPERACILLIN/TAZOB 2.25 GM 2.25 GM in DEXTROSE 5%-WATER - 50 ML IVPB ONE (05:16)
[2025-02-20] MEDS ORDERED: INSULIN GLARGINE (LANTUS) 100 UNITS/ML UNITS SQ ONE (06:38)
[2025-02-20] MEDS ORDERED: INSULIN ASPART SLIDING SCALE (NOVOLOG) 1 VIAL SQ ONE (06:38)
[2025-02-20] MEDS: PIPERACILLIN/TAZOB 2.25 GM 2.25 GM in DEXTROSE 5%-WATER - 50 ML IVPB SCH (09:28)
[2025-02-20] MEDS: VANCOMYCIN/WATER FOR INJ (PEG) 1,000 MG/200 ML BAG IVPB ONE (15:57)
[2025-02-21 07:35] LABS: MCHC 30.8 g/dl (32.3-36.5); MEAN CELL VOLUME 91.8 fl (79.0-92.2); MEAN PLT VOLUME 11.1 fl (9.4-12.4); RDW 16.0 % (12.0-15.6)
[2025-02-21] MEDS ORDERED: SODIUM CHLORIDE 250 ML IV PRN (10:52)
[2025-02-21] MEDS: HEPARIN NA (PORCINE) 5,000 UNITS/ML 1ML VIAL IVPUSH ONE (10:55)
[2025-02-21] MEDS: HEPARIN NA (PORCINE) 5,000 UNITS/ML 1ML VIAL IVPUSH SCH (10:58)
[2025-02-21] MEDS ORDERED: ERTAPENEM SODIUM 1 GM in SODIUM CHLORIDE 50 ML IVPB SCH (11:00)
[2025-02-21 12:06] LABS: GLUCOSE,RANDOM 324.0 mg/dL (74-106)
[2025-02-21 12:07] LABS: TOT PROT 6.2 g/dl (6.4-8.2)
[2025-02-21 12:08] LABS: CO2 21.0 mmol/L (21-32)
[2025-02-21 12:09] LABS: ALK PHOS 75.0 U/L (40-150)
[2025-02-21 12:12] LABS: CREATININE 4.58 mg/dL (0.55-1.3); SGOT/AST 14.0 U/L (5-34); SGPT/ALT 7.0 U/L (0-55)
[2025-02-21] MEDS: ERTAPENEM SODIUM 1 GM in SODIUM CHLORIDE 50 ML IVPB ONE (13:10)
[2025-02-21] MEDS ORDERED: PORTA CATH FLUSH 10 ML IVPUSH PRN (16:21)
[2025-02-21] MEDS: SENNOSIDES 8.6MG TABLET (FP) PO PRN (22:29)
[2025-02-22] MEDS: ERTAPENEM SODIUM 1 GM in SODIUM CHLORIDE 50 ML IVPB SCH (09:43)
[2025-02-22] MEDS: CEFEPIME HCL 1 GM VIAL (RESTRICTED TO ID) IVPB SCH (09:55)
[2025-02-23] MEDS ORDERED: DEXTROSE 50%-WATER 25 GM/50 ML DISP.SYRIN ONE (03:45)
[2025-02-23] MEDS: DEXTROSE 50%-WATER 25 GM/50 ML DISP.SYRIN IVPUSH ONE ×2 (03:47→08:26)
[2025-02-23] MEDS: DEXTROSE 5%-WATER - 1,000 ML IV SCH (04:00)
[2025-02-23] MEDS: INSULIN GLARGINE (LANTUS) 100 UNITS/ML UNITS SQ SCH (06:25)
[2025-02-23] MEDS ORDERED: INSULIN GLARGINE (LANTUS) 100 UNITS/ML UNITS SQ ONE (06:48)
[2025-02-23] MEDS ORDERED: INSULIN ASPART SLIDING SCALE (NOVOLOG) 1 VIAL SQ ONE (06:48)
[2025-02-23 08:11] LABS: ABSOLUTE IMMATURE GRANULOCYTES 0.02 x10^3/uL (0.0-0.031); BASOPHILS # 0.04 x10^3/uL (0.01-0.08); EOSINOPHIL % 1.8 % (0.8-7.0); EOSINOPHILS # 0.12 x10^3/uL (0.04-0.54); MCHC 30.5 g/dl (32.3-36.5); MEAN CELL VOLUME 92.5 fl (79.0-92.2); MEAN PLT VOLUME 10.5 fl (9.4-12.4); MONOCYTE # 0.47 x10^3/uL (0.30-0.82); MONOCYTE % 7.0 % (5.3-12.2); RDW 15.5 % (12.0-15.6)
[2025-02-23 08:57] LABS: GLUCOSE,RANDOM 191.0 mg/dL (74-106); TOT PROT 6.3 g/dl (6.4-8.2)
[2025-02-23 08:58] LABS: CO2 20.0 mmol/L (21-32)
[2025-02-23 08:59] LABS: ALK PHOS 65.0 U/L (40-150)
[2025-02-23 09:02] LABS: CREATININE 6.79 mg/dL (0.55-1.3); SGOT/AST 17.0 U/L (5-34); SGPT/ALT 9.0 U/L (0-55)
[2025-02-23] MEDS: ACETAMINOPHEN 325 MG TABLET (FP) PO PRN (10:19)
[2025-02-24] MEDS: MELATONIN 5 MG TABLETS PO ONE (05:00)
[2025-02-24] MEDS ORDERED: SODIUM CHLORIDE 250 ML IV PRN (13:00)
[2025-02-24] MEDS: EPOETIN ALFA-EPBX 10,000 UNIT/ML VIAL IVPUSH ONE (14:10)
[2025-02-24] MEDS ORDERED: ONDANSETRON 4 MG/2 ML VIAL IVPUSH PRN ×2 (17:59→20:28)
[2025-02-24] MEDS ORDERED: SODIUM CHLORIDE 1,000 ML IV SCH ×2 (18:00→20:28)
[2025-02-24] MEDS ORDERED: MIDAZOLAM HCL 2 MG/2 ML SINGLE DOSE VIAL ONE ×2 (18:13→18:28)
[2025-02-24] MEDS ORDERED: LIDOCAINE HCL 2% 100 MG/5 ML DISP.SYRIN ONE (18:13)
[2025-02-24] MEDS ORDERED: PROPOFOL 20 ML ONE (18:13)
[2025-02-24] MEDS: LIDOCAINE HCL 1%, 10 MG/ML (50 mL VIAL) INF ONE (19:11)
[2025-02-24] MEDS ORDERED: ACETAMINOPHEN 325 MG TABLET (FP) PO PRN (20:28)
[2025-02-24] MEDS ORDERED: SENNOSIDES 8.6MG TABLET (FP) PO PRN (20:28)
[2025-02-24] MEDS ORDERED: PORTA CATH FLUSH 10 ML IVPUSH PRN (20:28)
[2025-02-24 20:36] VITALS: RESP 18
[2025-02-24] MEDS: ATORVASTATIN CA 40 MG TABLET (FP) PO SCH (21:36)
[2025-02-24] MEDS: CARVEDILOL 6.25 MG TABLET (FP) PO SCH (21:36)
[2025-02-24] MEDS: HEPARIN NA (PORCINE) 5,000 UNITS/ML 1ML VIAL SQ SCH (21:37)
[2025-02-24] MEDS: BUDESONIDE/FORMETEROL FUMARATE 160/4.5 mcg INHALER IH SCH (21:38)
[2025-02-24] MEDS: INSULIN ASPART SLIDING SCALE (NOVOLOG) 1 VIAL SQ SCH (22:14)
[2025-02-25] MEDS: INSULIN GLARGINE (LANTUS) 100 UNITS/ML UNITS SQ SCH (06:04)
[2025-02-25] MEDS: amLODIPine BESYLATE 10 MG TABLET (FP) PO SCH (09:16)
[2025-02-25] MEDS: PANTOPRAZOLE 40 MG TABLET PO SCH (09:16)
[2025-02-25] MEDS: ERTAPENEM SODIUM 1 GM in SODIUM CHLORIDE 50 ML IVPB SCH (09:18)
[2025-02-25] MEDS: NICOTINE 14 MG/24 HOURS TOPICAL PATCH TD SCH (09:18)
[2025-02-25 12:05] VITALS: BP 136/84; PULSE 82; TEMP 98.4
== END 2025-02-25 13:45 | disposition home or self-care (01) | DRG 951 ==
LOC: JER 13:53 → JERBED 16:21 → J6S 02-19 04:16
PROVIDERS: ADMIT Family Medicine; ATTEND Family Medicine
PROC: B518ZZA Fluoroscopy of Superior Vena Cava, Guidance (ICD-10-PCS; 2025-02-24)
PROC: 057Y3ZZ Dilation of Upper Vein, Percutaneous Approach (ICD-10-PCS; 2025-02-24)
PROC: 02HV33Z Insertion of Infusion Device into Superior Vena Cava, Percutaneous Approach (ICD-10-PCS; principal; 2025-02-24 17:30)
DX: E11.69 Type 2 diabetes mellitus with other specified complication (principal); M86.171 Other acute osteomyelitis, right ankle and foot; E11.621 Type 2 diabetes mellitus with foot ulcer; L97.518 Non-pressure chronic ulcer of other part of right foot with other specified severity; I25.10 Atherosclerotic heart disease of native coronary artery without angina pectoris; E78.5 Hyperlipidemia, unspecified; E11.51 Type 2 diabetes mellitus with diabetic peripheral angiopathy without gangrene; K21.9 Gastro-esophageal reflux disease without esophagitis; F41.8 Other specified anxiety disorders; H54.40 Blindness, one eye, unspecified eye; R80.9 Proteinuria, unspecified; I13.2 Hypertensive heart and chronic kidney disease with heart failure and with stage 5 chronic kidney disease, or end stage renal disease; D64.9 Anemia, unspecified; I50.32 Chronic diastolic (congestive) heart failure; N18.6 End stage renal disease; T82.858A Stenosis of other vascular prosthetic devices, implants and grafts, initial encounter; Y83.8 Other surgical procedures as the cause of abnormal reaction of the patient, or of later complication, without mention of misadventure at the time of the procedure; E11.22 Type 2 diabetes mellitus with diabetic chronic kidney disease; E66.9 Obesity, unspecified; Z68.38 Body mass index [BMI] 38.0-38.9, adult; L08.89 Other specified local infections of the skin and subcutaneous tissue; B96.20 Unspecified Escherichia coli [E. coli] as the cause of diseases classified elsewhere; B95.2 Enterococcus as the cause of diseases classified elsewhere; B95.1 Streptococcus, group B, as the cause of diseases classified elsewhere; B95.7 Other staphylococcus as the cause of diseases classified elsewhere; B96.4 Proteus (mirabilis) (morganii) as the cause of diseases classified elsewhere; Z89.421 Acquired absence of other right toe(s)
CPT/HCPCS: 11042; 36415; 36558; 36569; 73630-TC-RT-FY; 73718-TC-RT; 76000-TC-FY; 80053; 82962; 83605; 83735; 84100; 85025; 85027; 85610; 85651; 85730; 86140; 86705; 86803; 86850; 86900; 86901; 87040; 87070; 87076; 87077; 87205; 87340; 87389; 87517; 93005; 93010; 93990-TC; 94760; 99285-25; G0480; Q5106

== ENCOUNTER 2025-04-10 06:07 | Day surgery (SDC) | payer OTHER ==
[2025-02-25 14:12] VITALS: BMI 38.7
[2025-04-10] MEDS ORDERED: LIDOCAINE HCL 1%, 10 MG/ML (20ML VIAL) ONE (07:35)
[2025-04-10] MEDS ORDERED: DEXMEDETOMIDINE HCL 200 MCG/2 ML IVPB ONE (08:01)
[2025-04-10] MEDS ORDERED: PROPOFOL 20 ML ONE (08:09)
[2025-04-10] MEDS ORDERED: MIDAZOLAM HCL 2 MG/2 ML SINGLE DOSE VIAL ONE (08:10)
[2025-04-10] MEDS: HEPARIN NA (PORCINE) 5,000 UNITS/ML 1ML VIAL TP ONE (08:34)
[2025-04-10] MEDS: LIDOCAINE HCL 1%, 10 MG/ML (20ML VIAL) INF ONE (08:35)
[2025-04-10] MEDS ORDERED: HEPARIN NA (PORCINE) 5,000 UNITS/ML 1ML VIAL ONE ×2 (08:42)
[2025-04-10] MEDS ORDERED: PHENYLEPHRINE HCL 10 MG/1 ML SINGLE DOSE VIAL ONE (09:03)
[2025-04-10] MEDS ORDERED: PROTAMINE SULFATE 50 MG/5 ML VIAL ONE (09:12)
[2025-04-10] MEDS ORDERED: ACETAMINOPHEN 1000 MG/100 ML BAG IVPB ONE (09:26)
[2025-04-10] MEDS ORDERED: ONDANSETRON 4 MG/2 ML VIAL IVPUSH PRN (09:26)
[2025-04-10] MEDS ORDERED: LACTATED RINGERS SOLUTION 1,000 ML IV SCH (09:30)
[2025-04-10] MEDS ORDERED: BACITRACIN ZINC 15 GM TUBE TOPICAL OINTMENT ONE (09:38)
[2025-04-10 10:20] VITALS: RESP 18
[2025-04-10 10:34] VITALS: BP 108/47; PULSE 97; TEMP 97.7
[2025-04-10] MEDS ORDERED: POVIDONE-IODINE OINTMENT 10% - 28.4 GM TUBE ONE (10:58)
== END 2025-04-10 11:20 | disposition home or self-care (01) ==
LOC: JASU-SURG 06:07
PROVIDERS: ATTEND Surgery
PROC: 047K3ZZ Dilation of Right Femoral Artery, Percutaneous Approach (ICD-10-PCS; 2025-04-10)
PROC: B41DYZZ Fluoroscopy of Aorta and Bilateral Lower Extremity Arteries using Other Contrast (ICD-10-PCS; principal; 2025-04-10 08:00)
DX: I70.201 Unspecified atherosclerosis of native arteries of extremities, right leg (principal); I77.1 Stricture of artery
CPT/HCPCS: 37224; C1725; 76000-TC-FY; 82962; 94760; C1760; C1769; C1894